=== PATIENT | female | born 1975 ===

== ENCOUNTER → 2019-01-05 | Outpatient (CLI) | payer OTHER ==
--- NOTE | 2019-01-05 10:58 | RADIOLOGY IMAGING REPORT ---
FACILITY: [facility] PATIENT NAME: Felicitas Romano : 1975 MR: [id number] V: [id number] EXAM DATE: ORDERING PHYSICIAN: [facility] [place] TECHNOLOGIST: Location: [facility] Patient: Felicitas Romano : 1975 Visit/Account:[id number] Date of Sevice: 01/05/2019 TRANSVAGINAL NON-OB HISTORY: Fertility treatment, endometrial thickness TECHNIQUE: Transvaginal ultrasound pelvis. COMPARISON: None. FINDINGS: A limited transvaginal ultrasound pelvis was performed to evaluate the endometrium. There is a trila minar appearance to the endometrial stripe which measured 7.1 mm in thickness. Period incidentally n oted is a 2 x 1.8 x 1 cm hypoechoic nodule in the anterior aspect of the uterine body likely represen ting an incidental intramural fibroid IMPRESSION: The endometrium measured 7.1 mm in thickness and has a trilaminar appearance. Incidentally noted is a 2 cm hypoechoic mass anterior aspect uterine body likely representing an intramural fibroid Report Dictated By: Reena An MD at 01/05/2019 10:50 AM Report E-Signed By: Reena An MD at 01/05/2019 10:53 AM WSN:[email or web address]
== END ==
LOC: LAB 08:48
PROVIDERS: ATTEND Obstetrics & Gynecology Reproductive Endocrinology
DX: N97.9 Female infertility, unspecified (principal)
CPT/HCPCS: 36415; 76830; 82670

== ENCOUNTER → 2019-01-29 | Outpatient (CLI) | payer OTHER | LOC: LAB 09:34 | PROVIDERS: ATTEND Obstetrics & Gynecology Reproductive Endocrinology | DX: Z13.29 Encounter for screening for other suspected endocrine disorder (principal); O09.811 Supervision of pregnancy resulting from assisted reproductive technology, first trimester | CPT/HCPCS: 36415; 84144; 84443; 84702 ==

== ENCOUNTER → 2019-02-12 | Outpatient (CLI) | payer OTHER ==
[~2019-02-12] MED LIST: CHOL500045 PO; DOCO100C2 PO; ESTR1PAT64 TD; FOLI0.8C2; LACT1CAP6 PO; LEVO100T95 PO; LEVO125T77 PO; PREN-127 PO; PROG100I2 VG; PROG50VI5 IM
[2019-02-12 10:26] LABS: PLATELET COUNT, AUTOMATED 433 K/uL (150-450)
== END ==
LOC: LAB 08:28
PROVIDERS: ATTEND Obstetrics & Gynecology
DX: O99.281 Endocrine, nutritional and metabolic diseases complicating pregnancy, first trimester (principal); E03.9 Hypothyroidism, unspecified
CPT/HCPCS: 36415; 81001; 84443; 85025; 86592; 86703; 86762; 86850; 86900; 86901; 87088; 87340

== ENCOUNTER → 2019-03-08 | Outpatient (CLI) | payer OTHER ==
[~2019-03-08] MED LIST changes: +ASPI-1471 PO
== END ==
LOC: LAB 14:00
PROVIDERS: ATTEND Obstetrics & Gynecology
DX: Z11.3 Encounter for screening for infections with a predominantly sexual mode of transmission (principal); Z11.8 Encounter for screening for other infectious and parasitic diseases
CPT/HCPCS: 87491; 87591

== ENCOUNTER → 2019-03-27 | Outpatient (CLI) | payer OTHER | LOC: LAB 11:52 | PROVIDERS: ATTEND Student in an Organized Health Care Education/Training Program | DX: O16.1 Unspecified maternal hypertension, first trimester (principal) | CPT/HCPCS: 82570; 84156 ==

== ENCOUNTER → 2019-03-30 | Outpatient (CLI) | payer OTHER | LOC: LAB 14:37 | PROVIDERS: ATTEND Obstetrics & Gynecology | DX: O16.1 Unspecified maternal hypertension, first trimester (principal) | CPT/HCPCS: 84156 ==